=== PATIENT | female | born 1990 | race Caucasian/White ===

== ENCOUNTER 2016-08-21 22:50 | Emergency (ER) | payer OTHER ==
[~2016-08-21] VITALS: Ht 170.2 cm; Wt 56.2 kg
[~2016-08-21 22:50] MED LIST: AZITHROMYCIN 2250 MG PO; CYCLOBENZAPRINE5 MG PO; NORCO 5-325 TA1 EACH PO; PENICILLIN V P500 MG PO; PREDNISONE 20 M20 MG PO; PROVENTIL IN
[2016-08-22] MEDS ORDERED: NORCO 5-325 TA1 EACH PO (00:16)
[2016-08-22 00:25] VITALS: BP 118/66
== END 2016-08-22 00:32 | disposition home or self-care (01) ==
LOC: ER 22:50
DX: S93.401A Sprain of unspecified ligament of right ankle, initial encounter (principal); V00.131A Fall from skateboard, initial encounter; Y93.51 Activity, roller skating (inline) and skateboarding; Y92.89 Other specified places as the place of occurrence of the external cause; Y99.8 Other external cause status; J45.909 Unspecified asthma, uncomplicated